=== PATIENT | female | born 1990 | race American Indian/Alaskan Native ===

== ENCOUNTER 2017-03-19 08:28 | Emergency (ER) | payer SELFPAY ==
[2017-03-19 08:59] LABS: Basophils % (Auto) 0.5 % (0.0-1.8); Eosinophils % (Auto) 2.7 % (0.0-4.3); Hematocrit 39.9 % (30.3-42.9); Hemoglobin 12.9 gm/dl (10.1-14.3); Mean Corpuscular HGB Conc 32 % (30-34); Mean Corpuscular Hemoglobin 29 pg (28-32); Mean Corpuscular Volume 90 fl (79-97); Platelet Count 272 K/mm3 (140-440); Red Blood Count 4.43 M/mm3 (3.65-5.03); Red Cell Distribution Width 13.3 % (13.2-15.2); White Blood Count 8.4 K/mm3 (4.5-11.0)
[2017-03-19 09:10] LABS: Bacteria,Urine 1+ /HPF (Negative); Bilirubin,Urine NEG (Negative); Blood,Urine LG (Negative); Ketones,Urine NEG (Negative); Leukocyte Esterase,Urine TR (Negative); Mucus,Urine FEW /HPF; Nitrite,Urine NEG (Negative); Protein,Urine <15 mg/dL mg/dL (Negative); Urobilinogen,Urine < 2.0 mg/dL (<2.0)
[2017-03-19 09:30] LABS: Anion Gap 15 mmol/L; BUN/Creatinine Ratio 14; Blood Urea Nitrogen 11 mg/dL (7-17); Calcium 9.2 mg/dL (8.4-10.2); Carbon Dioxide 26 mmol/L (22-30); Glucose 84 mg/dL (65-100); Potassium 4.2 mmol/L (3.6-5.0); Sodium 140 mmol/L (137-145)
--- NOTE | 2017-03-19 10:33 | Ultrasound Report ---
Pelvic and transvaginal sonography: Next History: Vaginal bleeding. Findings: Uterus measures 8.9 x 4.8 x 5.9 cm. Single intrauterine gestational sac identified. The sac diameter is 33.2 mm corresponding to a 8 weeks and 3 days of gestation. The sac is located at the lower part of the endometrium adjacent to the lower uterine segment. There is suspected small yolk sac identified within the gestational sac. No pole is seen. The margin of the gestational sac appears slightly irregular. Right ovary 2.8 x 1.9 x 2.6 cm. No mass. Left ovary 3.4 x 2.1 x 2.8 cm. Cyst of the left ovary measures 1 cm. Impression: Gestational sac diameter corresponds to 8 weeks and 3 days of gestation however no pole is identified and suspected small yolk sac is noted. Additional findings as detailed above.
[2017-03-19 15:40] VITALS: BP 128/86
--- NOTE | 2017-03-19 16:27 | Emergency Department Report ---
ED Female HPI - General Chief complaint: Abdominal Pain Stated complaint: PREG, VAGINAL BLEEDING, ABDOMINAL PAIN Time Seen by Provider: 03/19/17 16:26 Source: patient Mode of arrival: Ambulatory Limitations: No Limitations - History of Present Illness Initial comments: This is a 26-year-old female, previously unknown to this provider, presents to the ER with complaint of vaginal bleeding since yesterday. Patient has no headache, neck pain, chest pain, or shortness of breath, and denies irritative/ obstructive urinary symptoms. MD Complaint: vaginal bleeding -: Gradual Severity: mild Consistency: intermittent Improves with: none Worsens with: none Are you Now?: Yes Associated Symptoms: vaginal bleeding. denies: vaginal discharge, nausea/ vomiting, fever/chills, headaches, dysuria - Related Data Sexually active: Yes Previous Rx's Medication Instructions Recorded Last Taken Type Doxylamine Succinate/Vit B6 1 each PO QHS PRN #30 tablet. 03/19/17 Unknown Rx [Anne Marie Hackett 10-10 mg Tablet] Cathy Root [Cathy] 250 mg PO QID PRN #30 capsule 03/19/17 Unknown Rx Vit Calc,Iron,Folic 1 each PO QDAY #30 tablet 03/19/17 Unknown Rx [ Vitamins] Allergies Allergy/AdvReac Type Severity Reaction Status Date / Time No Known Allergies Allergy Verified 03/19/17 08:42 ED Review of Systems ROS: Stated complaint: PREG, VAGINAL BLEEDING, ABDOMINAL PAIN Other details as noted in HPI Constitutional: denies: fever Eyes: denies: eye discharge ENT: denies: epistaxis Respiratory: denies: cough Cardiovascular: denies: chest pain Gastrointestinal: denies: vomiting Genitourinary: abnormal menses. denies: dysuria Musculoskeletal: denies: back pain Skin: denies: lesions Neurological: denies: headache Psychiatric: as per HPI ED Past Medical Hx - Past Medical History Hx Asthma: Yes - Surgical History Past Surgical History?: No - Social History Smoking Status: Never Smoker Substance Use Type: None - Medications Home Medications: Home Medications Medication Instructions Recorded Confirmed Last Taken Type Doxylamine Succinate/Vit B6 1 each PO QHS PRN #30 tablet. 03/19/17 Unknown Rx [Anne Marie Hackett 10-10 mg Tablet] Cathy Root [Cathy] 250 mg PO QID PRN #30 capsule 03/19/17 Unknown Rx Vit Calc,Iron,Folic 1 each PO QDAY #30 tablet 03/19/17 Unknown Rx [ Vitamins] ED Physical Exam - General Limitations: No Limitations General appearance: alert, in no apparent distress - Head Head exam: Present: atraumatic, normocephalic - Eye Eye exam: Present: normal appearance, EOMI. Absent: nystagmus - ENT ENT exam: Present: normal exam, normal orophraynx, mucous membranes moist, normal external ear exam - Neck Neck exam: Present: normal inspection, full ROM. Absent: tenderness, meningismus - Respiratory Respiratory exam: Present: normal lung sounds bilaterally. Absent: respiratory distress, wheezes, rales, rhonchi, stridor, chest wall tenderness, accessory muscle use, decreased breath sounds, prolonged expiratory - Cardiovascular Cardiovascular Exam: Present: regular rate, normal rhythm, normal heart sounds. Absent: bradycardia, tachycardia, irregular rhythm, systolic murmur, diastolic murmur, rubs, gallop - GI/Abdominal GI/Abdominal exam: Present: soft, normal bowel sounds. Absent: distended, tenderness, guarding, rebound, rigid, pulsatile mass - External exam: Present: normal external exam Speculum exam: Present: normal speculum exam, vaginal bleeding, other (escorted by nurse Rosa henao) - Extremities Exam Extremities exam: Present: normal inspection, full ROM, normal capillary refill. Absent: pedal edema, joint swelling - Back Exam Back exam: Present: normal inspection, full ROM. Absent: tenderness, CVA tenderness (R), CVA tenderness (L), muscle spasm, paraspinal tenderness, vertebral tenderness - Neurological Exam Neurological exam: Present: alert, oriented X3, normal gait, other (Extraocular movements intact. Tongue midline. No facial droop. Facial sensation intact to light touch in the V1, V2, V3 distribution bilaterally. 5 and 5 strength in 4 extremities.. Sensation is intact to light touch in 4 extremities.). Absent : motor sensory deficit - Psychiatric Psychiatric exam: Present: normal affect, normal mood - Skin Skin exam: Present: warm, dry, intact, normal color. Absent: rash ED Course Vital Signs 03/19/17 03/19/17 03/19/17 08:31 15:38 15:40 Temperature 98.5 F 98.7 F Pulse Rate 88 66 72 Respiratory 18 18 18 Rate Blood Pressure 128/70 Blood Pressure 128/86 128/86 [Left] O2 Sat by Pulse 98 100 98 Oximetry 03/19/17 03/19/17 16:20 17:13 Temperature Pulse Rate Respiratory 18 18 Rate Blood Pressure Blood Pressure [Left] O2 Sat by Pulse 100 Oximetry ED Medical Decision Making - Lab Data Result diagrams: 03/19/17 08:49 03/19/17 08:49 Vital Signs 03/19/17 03/19/17 03/19/17 08:31 15:38 15:40 Temperature 98.5 F 98.7 F Pulse Rate 88 66 72 Respiratory 18 18 18 Rate Blood Pressure 128/70 Blood Pressure 128/86 128/86 [Left] O2 Sat by Pulse 98 100 98 Oximetry 03/19/17 16:20 Temperature Pulse Rate Respiratory 18 Rate Blood Pressure Blood Pressure [Left] O2 Sat by Pulse 100 Oximetry Lab Results 03/19/17 03/19/17 03/19/17 Range/Units 08:49 08:49 08:49 WBC 8.4 (4.5-11.0) K/mm3 RBC 4.43 (3.65-5.03) M/mm3 Hgb 12.9 (10.1-14.3) gm/dl Hct 39.9 (30.3-42.9) % MCV 90 (79-97) fl MCH 29 (28-32) pg MCHC 32 (30-34) % RDW 13.3 (13.2-15.2) % Plt Count 272 (140-440) K/mm3 Lymph % (Auto) 26.6 (13.4-35.0) % [place] % (Auto) 8.8 H (0.0-7.3) % Eos % (Auto) 2.7 (0.0-4.3) % Baso % (Auto) 0.5 (0.0-1.8) % Lymph # 2.2 (1.2-5.4) K/mm3 [place] # 0.7 (0.0-0.8) K/mm3 Eos # 0.2 (0.0-0.4) K/mm3 Baso # 0.0 (0.0-0.1) K/mm3 Seg Neutrophils % 61.4 (40.0-70.0) % Seg Neutrophils # 5.2 (1.8-7.7) K/mm3 Sodium (137-145) mmol/L Potassium (3.6-5.0) mmol/L Chloride (98-107) mmol/L Carbon Dioxide (22-30) mmol/L Anion Gap mmol/L BUN (7-17) mg/dL Creatinine (0.7-1.2) mg/dL Estimated GFR ml/min BUN/Creatinine Ratio % Glucose (65-100) mg/dL Calcium (8.4-10.2) mg/dL HCG, Quant 4932 H (0-4) mIU/mL Urine Color (Yellow) Urine Turbidity (Clear) Urine pH (5.0-7.0) Ur Specific [place] (1.003-1.030) Urine Protein (Negative) mg/dL Urine Glucose (UA) (Negative) mg/dL Urine Ketones (Negative) mg/dL Urine Blood (Negative) Urine Nitrite (Negative) Urine Bilirubin (Negative) Urine Urobilinogen (<2.0) mg/dL Ur Leukocyte Esterase (Negative) Urine WBC (Auto) (0.0-6.0) /HPF Urine RBC (Auto) (0.0-6.0) /HPF U Epithel Cells (Auto) (0-13.0) /HPF Urine Bacteria (Auto) (Negative) /HPF Urine Mucus /HPF Blood Type O POSITIVE Antibody Screen Negative 03/19/17 03/19/17 Range/Units 08:49 08:50 WBC (4.5-11.0) K/mm3 RBC (3.65-5.03) M/mm3 Hgb (10.1-14.3) gm/dl Hct (30.3-42.9) % MCV (79-97) fl MCH (28-32) pg MCHC (30-34) % RDW (13.2-15.2) % Plt Count (140-440) K/mm3 Lymph % (Auto) (13.4-35.0) % [place] % (Auto) (0.0-7.3) % Eos % (Auto) (0.0-4.3) % Baso % (Auto) (0.0-1.8) % Lymph # (1.2-5.4) K/mm3 [place] # (0.0-0.8) K/mm3 Eos # (0.0-0.4) K/mm3 Baso # (0.0-0.1) K/mm3 Seg Neutrophils % (40.0-70.0) % Seg Neutrophils # (1.8-7.7) K/mm3 Sodium 140 (137-145) mmol/L Potassium 4.2 (3.6-5.0) mmol/L Chloride 103.0 (98-107) mmol/L Carbon Dioxide 26 (22-30) mmol/L Anion Gap 15 mmol/L BUN 11 (7-17) mg/dL Creatinine 0.8 (0.7-1.2) mg/dL Estimated GFR > 60 ml/min BUN/Creatinine Ratio 14 % Glucose 84 (65-100) mg/dL Calcium 9.2 (8.4-10.2) mg/dL HCG, Quant (0-4) mIU/mL Urine Color Yellow (Yellow) Urine Turbidity Clear (Clear) Urine pH 8.0 H (5.0-7.0) Ur Specific [place] 1.008 (1.003-1.030) Urine Protein <15 mg/dl (Negative) mg/dL Urine Glucose (UA) Neg (Negative) mg/dL Urine Ketones Neg (Negative) mg/dL Urine Blood Lg (Negative) Urine Nitrite Neg (Negative) Urine Bilirubin Neg (Negative) Urine Urobilinogen < 2.0 (<2.0) mg/dL Ur Leukocyte Esterase Tr (Negative) Urine WBC (Auto) 6.0 (0.0-6.0) /HPF Urine RBC (Auto) 7.0 (0.0-6.0) /HPF U Epithel Cells (Auto) 6.0 (0-13.0) /HPF Urine Bacteria (Auto) 1+ (Negative) /HPF Urine Mucus Few /HPF Blood Type Antibody Screen - Radiology Data Radiology results: report reviewed, image reviewed Obstetrics ultrasound demonstrates intrauterine , 8 weeks and 3 days, no pole identified, suspect small yolk sac is identified, no heart rate is noted. Margin of gestational sac appears slightly irregular - Medical Decision Making Differential diagnosis: Miscarriage, ectopic , urinary tract infection Assessment and plan: 26-year-old female, 1, para 0, recently moved here from [place], no [facility] INTERN locally, no care, with intrauterine , scant vaginal bleeding, no abdominal tenderness, rebound or guarding, no urinary symptoms, clinical picture is consistent with threatened miscarriage. Rh+, very well-appearing, patient will be discharged with nausea medication as needed, vitamins, and instructions to follow up with outpatient gynecology. The importance of close outpatient follow-up, as well as sexual abstinence were relayed to the patient. She is stable for discharge at this point in time. Return precautions are reviewed. Critical care attestation.: If time is entered above; I have spent that time in minutes in the direct care of this critically ill patient, excluding procedure time. ED Disposition Clinical Impression: Miscarriage Disposition: DC-01 TO HOME OR SELFCARE Is pt being admited?: No Does the pt Need Aspirin: No Condition: Good Instructions: Threatened Miscarriage (ED) Additional Instructions: Rest and avoid heavy lifting. Avoid strenuous physical activity. Follow-up with the management advisor as soon as possible to start outpatient care. Avoid contact activity, strenuous physical activity, and do not have sex until cleared by a management advisor. Return to the ER right away with new pain, worsened pain, migration of pain, fevers, chills, lethargy, irritability, projectile vomiting, change in mental status, inability to tolerate liquid feeds, bleeding more than 2 pads soaked per hour. Prescriptions: Doxylamine Succinate/Vit B6 [Anne Marie Hackett 10-10 mg Tablet] 1 each PO QHS PRN #30 tablet. PRN Reason: Nausea Cathy Root [Cathy] 250 mg PO QID PRN #30 capsule PRN Reason: Nausea Vit Calc,Iron,Folic [ Vitamins] 1 each PO QDAY #30 tablet Referrals: PRIMARY CAREMD [Primary Care Provider] - 3-5 Days [facility] [Provider Group] - 3-5 Days [facility] [Provider Group] - 3-5 Days [facility] [Provider Group] - 3-5 Days
[2017-03-19] MEDS: TYLENOL PO ONE (17:13)
== END 2017-03-19 17:28 | disposition home or self-care (01) ==
LOC: ED 08:28
DX: O03.9 Complete or unspecified spontaneous abortion without complication (principal); J45.909 Unspecified asthma, uncomplicated
CPT/HCPCS: 36415; 76801; 76817; 80048; 81001; 84702; 85025; 86850; 86900; 86901

== ENCOUNTER 2017-03-20 12:31 | Emergency (ER) | payer SELFPAY | END 2017-03-20 12:32 | disposition left against medical advice (07) | LOC: ED 12:31 | DX: R10.9 Unspecified abdominal pain (principal); Z53.21 Procedure and treatment not carried out due to patient leaving prior to being seen by health care provider ==

== ENCOUNTER 2019-08-09 00:16 | Outpatient (CLI) | payer SELFPAY ==
[2019-08-09] MEDS ORDERED: LACTATED RINGERS 1,000 ML ONE (00:48)
[2019-08-09 00:51] VITALS: BP 108/56
[2019-08-09] MEDS ORDERED: ONDANSETRON 4 MG/2 ML INJ ONE (01:01)
[2019-08-09] MEDS ORDERED: LACTATED RINGERS 1,000 ML IV ONE (01:07)
[2019-08-09] MEDS ORDERED: ONDANSETRON 4 MG/2 ML INJ IV ONE (01:08)
[2019-08-09 01:41] LABS: Basophils # (Auto) 0.1 K/mm3 (0.0-0.1); Basophils % (Auto) 0.5 % (0.0-1.8); Hemoglobin 11.4 gm/dl (10.1-14.3); Lymphocytes # (Auto) 1.4 K/mm3 (1.2-5.4); Lymphocytes % (Auto) 7.5 % (13.4-35.0); Mean Corpuscular HGB Conc 33 % (30-34); Mean Corpuscular Volume 87 fl (79-97); Monocytes # (Auto) 0.5 K/mm3 (0.0-0.8); Monocytes % (Auto) 2.7 % (0.0-7.3); Platelet Count 315 K/mm3 (140-440); Red Blood Count 4.02 M/mm3 (3.65-5.03); Red Cell Distribution Width 14.2 % (13.2-15.2)
[2019-08-09] MEDS ORDERED: LACTATED RINGERS 1,000 ML IV SCH (02:00)
[2019-08-09 02:16] LABS: Alanine Aminotransferase 5 units/L (7-56); Albumin 3.8 g/dL (3.9-5); BUN/Creatinine Ratio 13; Blood Urea Nitrogen 9 mg/dL (7-17); Calcium 9.7 mg/dL (8.4-10.2); Hemolysis Index 18
[2019-08-09] MEDS ORDERED: PROMETHAZINE 25 MG TAB PO PRN (02:32)
== END 2019-08-09 02:52 | disposition home or self-care (01) ==
LOC: TRG 00:16
PROVIDERS: ATTEND Obstetrics & Gynecology
DX: O21.2 Late vomiting of pregnancy (principal); O26.892 Other specified pregnancy related conditions, second trimester; R10.9 Unspecified abdominal pain; Z3A.22 22 weeks gestation of pregnancy
CPT/HCPCS: 36415; 80053; 85025; 96374; J2405; J7120; Q0169; 96360

== ENCOUNTER 2019-08-11 13:27 | Outpatient (CLI) | payer OTHER ==
[2019-08-11 14:05] LABS: Bilirubin,Urine NEG (Negative); Blood,Urine NEG (Negative); Color,Urine Yellow (Yellow); Mucus,Urine 3+ /HPF; Urobilinogen,Urine < 2.0 mg/dL (<2.0)
[2019-08-11 14:18] VITALS: BP 120/70
[2019-08-11] MEDS ORDERED: ONDANSETRON 4 MG/2 ML INJ IV PRN (14:21)
[2019-08-11] MEDS ORDERED: LACTATED RINGERS 1,000 ML IV SCH (15:00)
[2019-08-11] MEDS ORDERED: ONDANSETRON 4 MG/2 ML INJ IV ONE (15:00)
== END 2019-08-11 16:13 | disposition home or self-care (01) ==
LOC: TRG 13:27
PROVIDERS: ATTEND Obstetrics & Gynecology
DX: O21.2 Late vomiting of pregnancy (principal); O26.892 Other specified pregnancy related conditions, second trimester; R25.2 Cramp and spasm; R51 Headache; O47.02 False labor before 37 completed weeks of gestation, second trimester; Z3A.22 22 weeks gestation of pregnancy
CPT/HCPCS: 81001; 96361; 96374; J2405; J7120

== ENCOUNTER 2019-09-01 16:33 | Observation (INO) | payer SELFPAY ==
[2019-09-01] MEDS ORDERED: LACTATED RINGERS 1,000 ML IV ONE (17:14)
[2019-09-01] MEDS ORDERED: ONDANSETRON 4 MG/2 ML INJ IV ONE (17:15)
[2019-09-01 19:34] LABS: Basophils % (Auto) 0.3 % (0.0-1.8); Hematocrit 33.2 % (30.3-42.9); Hemoglobin 10.9 gm/dl (10.1-14.3); Lymphocytes # (Auto) 1.3 K/mm3 (1.2-5.4); Lymphocytes % (Auto) 8.9 % (13.4-35.0); Mean Corpuscular HGB Conc 33 % (30-34); Mean Corpuscular Volume 87 fl (79-97); Monocytes # (Auto) 0.8 K/mm3 (0.0-0.8); Monocytes % (Auto) 5.3 % (0.0-7.3); Platelet Count 312 K/mm3 (140-440); Red Blood Count 3.81 M/mm3 (3.65-5.03)
[2019-09-01 19:41] LABS: Bacteria,Urine 1+ /HPF (Negative); Bilirubin,Urine NEG (Negative); Blood,Urine NEG (Negative); Color,Urine Yellow (Yellow); Mucus,Urine 3+ /HPF; Urobilinogen,Urine < 2.0 mg/dL (<2.0)
[2019-09-01 19:45] LABS: Amphetamine Screen,Urine PRESUMPTIVE NEGATIVE; Benzodiazepines Screen,Urine PRESUMPTIVE NEGATIVE; Cocaine Screen,Urine PRESUMPTIVE NEGATIVE; Methadone Screen,Urine PRESUMPTIVE NEGATIVE; Opiate Screen,Urine PRESUMPTIVE NEGATIVE
[2019-09-01 19:54] LABS: Albumin 3.5 g/dL (3.9-5); BUN/Creatinine Ratio 13; Blood Urea Nitrogen 9 mg/dL (7-17); Calcium 9.1 mg/dL (8.4-10.2); Hemolysis Index 2
[2019-09-01 19:58] LABS: Alanine Aminotransferase < 5 units/L (7-56)
[2019-09-01] MEDS ORDERED: ONDANSETRON 4 MG/2 ML INJ IM ONE (19:58)
[2019-09-01 19:59] LABS: Cannabinoid Screen,Urine PRESUMPTIVE POSITIVE
[2019-09-01 20:17] LABS: Hepatitis C Virus Antibody Non-Reactive (NonReactive)
--- NOTE | 2019-09-01 22:06 | Ultrasound Report ---
US OB >= 14 weeks Fetus INDICATION / CLINICAL INFORMATION: Decreased movement, abdominal pain. COMPARISON: None available. FINDINGS: Viable single intrauterine gestation in the breech presentation. heart rate 166 bpm The SARITA is normal, 14.5. measurements: BPD 6.1 equals 24 weeks 6 days Head circumference 22.5 equal to 24 weeks 4 days Abdominal circumference 20.2 equal to 24 weeks 6 days Femur length 4.4 equal to 24 weeks 4 days Estimated body weight 7 25 g Cervical length is measured at 3.3 cm. Signer Name: Tremaine King MD Signed: 09/01/2019 10:02 PM Workstation Name: [id number]
--- NOTE | 2019-09-01 23:45 | History and Physical Report ---
History of Present Illness Date of examination: 09/01/19 Date of admission: 09/01/2019 Chief complaint: n/v History of present illness: Pt gives edc of 12/12/19 given EGA of 25.3 which is c/w bedside sono done in triage. Present c/o nausea and vomiting with some blood seen with emesis after several episodes. Pt state she has the same problem with her last . States she has not had care and [place] and "my stay ended up being longer than I though/planned." Pt states she is given zofran and "this never works for me." She denies any sick contacts, Covid 19 positive contacts, fevers, chills. Pt continued to have n/v despite iv hydration and iv zofran.Pt also noted to have large ketones. Will admit and observe for now. 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 03/19/17 Unknown Rx [Anne Marie Hackett 10-10 mg Tablet] Cathy Root [Cathy] 250 mg PO QID PRN #30 capsule 03/19/17 Unknown Rx Vit Calc,Iron,Folic 1 each PO QDAY #30 tablet 03/19/17 Unknown Rx [ Vitamins] Ondansetron (Nf) [Zofran TAB] 8 mg PO Q8HR PRN #20 tablet 08/11/19 Unknown Rx - Vital Signs Vital signs: Vital Signs Temp Pulse Resp BP Pulse Ox 98.3 F 89 16 117/71 99 09/01/19 18:33 09/01/19 18:33 09/01/19 18:33 09/01/19 18:33 09/01/19 18:33 Temp Pulse Resp BP Pulse Ox 98.3 F 101 H 16 117/71 97 09/01/19 18:33 09/01/19 18:48 09/01/19 18:33 09/01/19 18:33 09/01/19 18:48 - Physical Exam Cardiovascular: Normal S1, Normal S2 Lungs: Positive: Normal air movement Abdomen: Positive: normal appearance, soft. Negative: distention, tenderness, guarding Genitourinary (Female): Positive: other (deferred) - Obstetrical FHR: category 1 Uterine Contraction Pattern: Absent Results Result Diagrams: 09/01/19 19:00 09/01/19 19:00 Abnormal lab results 09/01/19 09/01/19 09/01/19 Range/Units 18:50 19:00 19:00 WBC 14.7 H (4.5-11.0) K/mm3 Lymph % (Auto) 8.9 L (13.4-35.0) % Seg Neutrophils % 85.5 H (40.0-70.0) % Seg Neutrophils # 12.6 H (1.8-7.7) K/mm3 Carbon Dioxide (22-30) mmol/L Creatinine 0.6 L (0.7-1.2) mg/dL ALT (7-56) units/L Albumin (3.9-5) g/dL Ur Specific [place] 1.031 H (1.003-1.030) 09/01/19 Range/Units 19:00 WBC (4.5-11.0) K/mm3 Lymph % (Auto) (13.4-35.0) % Seg Neutrophils % (40.0-70.0) % Seg Neutrophils # (1.8-7.7) K/mm3 Carbon Dioxide 18 L (22-30) mmol/L Creatinine (0.7-1.2) mg/dL ALT < 5 L (7-56) units/L Albumin 3.5 L (3.9-5) g/dL Ur Specific [place] (1.003-1.030) All other labs normal. Assessment and Plan - Patient Problems (1) 25 weeks gestation of Current Visit: Yes Status: Acute (2) Nausea and vomiting Current Visit: Yes Status: Acute Plan to address problem: -admit -iv nausea meds -ice chips for now as per pt request to have them -IV hydration -electrolytes are normal a this time.
[2019-09-02] MEDS ORDERED: MULTIPLE VITAMIN INJ, ADULT 10 ML in D5W/LACTATED RINGERS 1,000 ML IV ONE (00:17)
[2019-09-02] MEDS ORDERED: DOCUSATE SODIUM 100 MG CAP PO PRN (00:17)
[2019-09-02] MEDS ORDERED: ACETAMINOPHEN 325 MG TAB PO PRN (00:17)
[2019-09-02] MEDS ORDERED: PROMETHAZINE 25 MG RECT SUPP PR SCH (01:00)
[2019-09-02] MEDS ORDERED: METOCLOPRAMIDE 10 MG/2 ML INJ IV SCH (01:00)
[2019-09-02 07:45] VITALS: BP 104/61
--- NOTE | 2019-09-02 07:57 | Discharge Summary ---
Providers - Providers Date of Admission: 09/01/19 22:14 Date of discharge: 09/02/19 (nausea resolved, pt desires d/c home) Attending physician: TONIO CALDERA Primary care physician: BOBJ DEVELOPER Hospitalization Reason for admission: nausea and vomiting Condition: Good Hospital course: IVF rehydration Disposition: DC-01 TO HOME OR SELFCARE - Discharge Diagnoses (1) 25 weeks gestation of Status: Acute (2) Nausea and vomiting Status: Resolved Core Measure Documentation - Palliative Care Palliative Care/ Comfort Measures: Not Applicable - Core Measures Any of the following diagnoses?: none Exam - Constitutional Vitals: Temp Pulse Resp BP Pulse Ox 98.4 F 82 18 104/61 99 09/02/19 07:51 09/02/19 07:44 09/02/19 07:51 09/02/19 07:44 09/02/19 00:29 General appearance: Present: no acute distress - EENT ENT: hearing intact, dentition normal - Neck Neck: Present: supple, normal ROM - Respiratory Respiratory effort: normal - Cardiovascular Rhythm: regular - Extremities Extremities: No edema - Abdominal General gastrointestinal: Present: soft, non-tender, non-distended - Integumentary Integumentary: Present: clear, warm, dry - Musculoskeletal Musculoskeletal: strength equal bilaterally - Psychiatric Psychiatric: appropriate mood/affect, intact judgment & insight - Neurologic Neurologic: CNII-XII intact, moves all extremities - Additional findings Additional findings: patient oob doing AM care, States she is going home 09/24/19. advised if she stays in [place] longer she needs to find an OBGYN in the area for care. patient verbalizes understanding, states she feels better and is eager to go home. Plan Activity: no restrictions Diet: advance as tolerated Follow up with: MOHAMUD PRASAD MD [Primary Care Provider] - 7 Days TONIO CALDERA MD [Family Provider] - 14 Days (Please call [phone] to establish care.)
[2019-09-02] MEDS ORDERED: PRENATAL VIT27-FE FUMARATE-FOLIC ACID VIT TAB PO SCH ×2 (10:00)
== END 2019-09-02 08:07 | disposition home or self-care (01) ==
LOC: TRG 16:33 → LD 22:14
PROVIDERS: ADMIT Obstetrics & Gynecology; ATTEND Obstetrics & Gynecology
DX: O21.2 Late vomiting of pregnancy (principal); O99.512 Diseases of the respiratory system complicating pregnancy, second trimester; J45.909 Unspecified asthma, uncomplicated; Z79.899 Other long term (current) drug therapy; Z3A.25 25 weeks gestation of pregnancy
CPT/HCPCS: 36415; 76805; 80053; 80307; 81001; 82565; 85025; 86592; 86706; 86762; 86803; 87086; 87806; 96361; 96365; 96366; 96375; G0378; J2405; J2765; J7120; J7121

== ENCOUNTER 2019-09-23 16:56 | Outpatient (CLI) | payer SELFPAY ==
[2019-09-23] MEDS ORDERED: LACTATED RINGERS 500 ML IV ONE (17:44)
[2019-09-23] MEDS ORDERED: LACTATED RINGERS 1,000 ML IV ONE (17:45)
[2019-09-23 18:26] LABS: Bacteria,Urine 2+ /HPF (Negative); Bilirubin,Urine NEG (Negative); Blood,Urine NEG (Negative); Color,Urine Yellow (Yellow); Mucus,Urine 3+ /HPF; Urobilinogen,Urine < 2.0 mg/dL (<2.0)
[2019-09-23] MEDS ORDERED: METOCLOPRAMIDE 10 MG TAB PO ONE (18:48)
[2019-09-23 18:59] LABS: Amphetamine Screen,Urine PRESUMPTIVE NEGATIVE; Benzodiazepines Screen,Urine PRESUMPTIVE NEGATIVE; Cocaine Screen,Urine PRESUMPTIVE NEGATIVE; Methadone Screen,Urine PRESUMPTIVE NEGATIVE; Opiate Screen,Urine PRESUMPTIVE NEGATIVE
[2019-09-23 19:17] LABS: Cannabinoid Screen,Urine PRESUMPTIVE POSITIVE
[2019-09-23 20:53] LABS: Alanine Aminotransferase 8 units/L (7-56); Albumin 3.4 g/dL (3.9-5); BUN/Creatinine Ratio 19; Blood Urea Nitrogen 13 mg/dL (7-17); Calcium 9.1 mg/dL (8.4-10.2); Hemolysis Index 6
[2019-09-24 04:00] VITALS: BP 121/74
== END 2019-09-23 21:43 | disposition home or self-care (01) ==
LOC: TRG 16:56 → APU 16:57 → TRG 21:43 → APU 09-24 04:12
PROVIDERS: ATTEND Obstetrics & Gynecology
DX: O26.893 Other specified pregnancy related conditions, third trimester (principal); R10.9 Unspecified abdominal pain; M54.5 Low back pain; J02.9 Acute pharyngitis, unspecified; Z3A.28 28 weeks gestation of pregnancy
CPT/HCPCS: 36415; 59025; 80053; 80307; 81001